=== PATIENT | female | born 1965 | race Hispanic/Latino ===

== ENCOUNTER 2023-02-27 08:53 | Day surgery (SDC) | payer BC ==
[2023-02-25 11:50] LABS: Absolute Lymphocytes (CBC) 2.2 K/uL (0.7-4.9); Hematocrit 39.7 % (36.0-45.0); Lymphocytes % 33.6 % (15.3-44.8); MCV 85.8 fL (80-100); MPV 7.8 fL (7.6-11.3); RBC Red Blood Cell Count 4.62 M/uL (3.86-4.86)
[2023-02-25 11:54] LABS: Potassium 3.5 mEq/L (3.5-5.1)
[2023-02-25 11:57] LABS: Protime INR 1.02
--- NOTE | 2023-02-25 12:05 | RAD REPORT ---
EXAM DESCRIPTION: RAD - Chest Pa And Lat (2 Views) - 02/25/2023 11:24 am CLINICAL HISTORY: Pre op pending trigger finger release. Hypertension COMPARISON: No comparisons TECHNIQUE: PA and lateral views of the chest were obtained. FINDINGS: The lungs are clear. Heart size is normal and central vasculature is within normal limits. No pleural effusion or pneumothorax seen. No acute bony finding noted. IMPRESSION: No acute cardiopulmonary process.
--- NOTE | 2023-02-25 13:37 | EKG ---
Test Date: 2023-02-25 Test Time: 11:13:11 Project Manager Retail: CARLIN MEASUREMENT RESULTS: Intervals: Rate: 74 WV: 138 QRSD: 84 QT: 388 QTc: 430 [place]: P: 7 WV: 138 QRS: -7 T: 14 INTERPRETIVE STATEMENTS: Normal sinus rhythm Normal ECG Compared to ECG 07/29/2018 08:24:08 Sinus arrhythmia no longer present Electronically Signed On 02-25-23 13:36:58 CDT by Eh Marroquin
[2023-02-27] MEDS ORDERED: CEFAZOLIN SODIUM 1 GM/VIAL ONE (09:19)
[2023-02-27] MEDS ORDERED: Ringers Lactate 1,000 ML IV ONE (09:19)
[2023-02-27] MEDS ORDERED: MIDAZOLAM HCL 2 MG/2 ML INJ ONE (10:20)
[2023-02-27] MEDS ORDERED: FENTANYL CITR 100 MCG/2 ML ONE (10:20)
[2023-02-27] MEDS ORDERED: propofoL 200 MG/20 ML VIAL IV ONE (10:20)
[2023-02-27] MEDS ORDERED: LIDOCAINE 2% MPF 5 ML VIAL ONE (10:20)
[2023-02-27] MEDS ORDERED: ONDANSETRON 4 MG/2 ML VIAL ONE ×2 (10:21→13:04)
[2023-02-27] MEDS ORDERED: BUPIVACAINE 0.25% PF 10 ML VIAL ONE (10:33)
[2023-02-27] MEDS ORDERED: dexAMETHasone 4 MG/ML VIAL ONE (11:05)
--- NOTE | 2023-02-27 11:35 | P.BOP ---
Preoperative diagnosis: left trigger thumb Postoperative diagnosis: same Primary procedure: left thumb A1 yael release Jig And Fixture Repairer: NONE,NONE Estimated blood loss: 2 cc Specimen: none Findings: see dictation Anesthesia: General Complications: None Implants: none Fluids & blood products: per anesthesia record; TT: 14 mins @ 250 mmHg Transferred to: Recovery Room Condition: Good
[2023-02-27] MEDS: HYDROMORPHONE HCL 1 MG/ML INJ ONE ×2 (12:04→12:09)
[2023-02-27] MEDS ORDERED: CODEINE 30MG/APAP 300MG TAB ONE (12:37)
[2023-02-27] MEDS ORDERED: PROMETHAZINE INJ 25 MG/ML AMP ONE (13:39)
[2023-02-27 15:29] VITALS: BP 125/76; TEMP 97.4; O2SAT 100
--- NOTE | 2023-03-04 14:37 | OP ---
Date of Procedure: 02/27/2023 Surgeon: Solitario Mckeon MD Preoperative Diagnosis: Left trigger thumb. Postoperative Diagnosis: Left trigger thumb. Procedure Performed: Left thumb A1 yael realease. Anesthesia: General LMA. Fluids: Per Anesthesia record. Estimated Blood Loss: 50 cc. Complications: None. Implants: None. Tourniquet Time: 14 minutes at 250 mmHg. Indication For Procedure: Jeannie is a 57-year-old female, who presented to the clinic with signs an d symptoms consistent with a trigger thumb. The patient failed conservative treatment measures inclu ding corticosteroid injection. The patient's symptoms interfered with her activities of daily living . I discussed with the patient at length risks and benefits associated with operative and nonoperati ve treatment. She expressed understanding and elected to proceed with operative treatment. Description Of Procedure: After informed consent was obtained, the patient was identified in the pre operative holding area. The left thumb was marked. The patient was then brought back to the operati ng room, transferred to the operating table in supine fashion, placed under general LMA anesthesia. The left upper extremity was then prepped and draped in the usual sterile fashion. A time-out was in itiated. Correct patient and procedure were confirmed and identified. The patient did receive her p reoperative prophylactic antibiotics. The left upper extremity was exsanguinated and the tourniquet was inflated to 250 mmHg. Approximately, a 1.5 cm incision was made in line with the crease at the b ase of the thumb. Dissection was then taken down to the flexor tendon sheath. The radial digital ne rve was gently retracted as it was overlying the flexor tendon sheath and protected throughout the ca se. A flexor tendon sheath was then incised using a 15 blade and released using a 15 blade as well a s tenotomies. Portion of the flexor tendon sheath was excised to minimize risk for recurrence. The tendon was then brought out through the incision and there was full excursion of the tendon without t riggering noted. The wound was then irrigated thoroughly with normal saline. Skin was approximated using a 5-0 Prolene. Sterile dressings were applied. Tourniquet was let down. The patient was awak ened and transferred to the PACU in stable condition. Postoperative Plan: The patient will be nonweightbearing of her left upper extremity. She may work on range of motion exercises. She will follow up in 2 weeks for wound check and suture removal. TRINA/SARMAD Voice ID: [id number] Report ID: [id number]
== END 2023-02-27 15:03 | disposition home or self-care (01) ==
LOC: OR 08:53
PROVIDERS: ATTEND Orthopaedic Surgery Sports Medicine
PROC: 0LN80ZZ Release Left Hand Tendon, Open Approach (ICD-10-PCS; principal; 2023-02-27 10:15)
DX: M65.312 Trigger thumb, left thumb (principal); E03.9 Hypothyroidism, unspecified; J30.2 Other seasonal allergic rhinitis; Z83.3 Family history of diabetes mellitus; Z82.49 Family history of ischemic heart disease and other diseases of the circulatory system
CPT/HCPCS: 93005; 85025; 80048; 36415; 85610; 85730; 71046; 26055; J2550; J2704; J1100; J2001; J2250; J3010; J1170; J2405 ×2; J7120; J0690

== ENCOUNTER 2023-03-20 09:32 | Day surgery (SDC) | payer BC ==
[2023-03-20] MEDS ORDERED: Ringers Lactate 1,000 ML IV ONE (09:56)
[2023-03-20] MEDS ORDERED: CEFAZOLIN SODIUM 2 GM/VIAL ONE (10:18)
[2023-03-20] MEDS ORDERED: MIDAZOLAM HCL 2 MG/2 ML INJ ONE (11:00)
[2023-03-20] MEDS ORDERED: KETOROLAC 30 MG/ML INJ ONE (11:00)
[2023-03-20] MEDS ORDERED: FENTANYL CITR 100 MCG/2 ML ONE (11:00)
[2023-03-20] MEDS ORDERED: propofoL 200 MG/20 ML VIAL IV ONE (11:00)
[2023-03-20] MEDS ORDERED: ONDANSETRON 4 MG/2 ML VIAL ONE (11:01)
[2023-03-20] MEDS ORDERED: LIDOCAINE 2% MPF 5 ML VIAL ONE (11:01)
[2023-03-20] MEDS ORDERED: SCOPOLAMINE HYDROBROMIDE PATCH TD ONE (11:02)
[2023-03-20] MEDS ORDERED: BUPIVACAINE 0.25% PF 10 ML VIAL ONE (11:05)
[2023-03-20] MEDS ORDERED: LIDOCAINE HCL/EPINEPHRINE 20 ML MDV ONE (11:07)
[2023-03-20] MEDS ORDERED: METHYLENE BLUE 0.5% 10 ML AMP ONE (11:07)
[2023-03-20] MEDS ORDERED: dexAMETHasone 10 MG/ML VIAL ONE (12:09)
--- NOTE | 2023-03-20 12:29 | P.OP ---
Preoperative diagnosis: LEFT Perirectal Cyst Postoperative diagnosis: LEFT Perirectal Cyst Primary procedure: Exam under anesthesia Secondary procedure: Excision of Perirectal Cyst Anesthesia: GETA + Local Estimated blood loss: <5cc Specimen: Cultures, Debridement Tissue Findings: Perirectal Cyst - no communication with rectum Complications: None Transferred to: Recovery Room Condition: Good
[2023-03-20 12:47] VITALS: O2SAT 100
[2023-03-20 14:31] VITALS: BP 117/63; TEMP 96.6
--- NOTE | 2023-03-20 20:10 | OP ---
Date of Procedure: 03/20/2023 Surgeon: Michel Rao MD, Preoperative Diagnosis: Left perirectal cyst. Postoperative Diagnosis: Left perirectal cyst. Procedures Performed: 1.Exam under anesthesia. 2.Excision of perirectal cyst. Anesthesia: General endotracheal plus local with 0.25% Marcaine. Estimated Blood Loss: Less than 5 cc. Specimen: Culture sent for both aerobic and anaerobic speciation and debridement tissue. Findings: Perirectal cyst approximately 2.5 cm in size with no communication to the rectum obvious. Complications: None. The patient was transferred to recovery room in good condition. Procedure In Detail: After informed consent was obtained, the patient was brought to the operating r oom and prepped and draped in the usual sterile fashion. After adequate anesthesia was achieved, the patient remained in lithotomy position. I injected left midline perirectal cyst, which was easily p alpable of approximately 2 to 2.5 cm in size down into the cystic structure, with methylene blue. At this point, I examined the rectal vault with the anoscope and found no evidence of perirectal involv ement. There was no methylene blue emanating from the perirectal vault as such. There was no indica tion that there was any fistulous tract connecting these structures. I then abandoned this portion o f the procedure. I then made a curvilinear incision around the cyst down to subcutaneous tissues and dissected circumferentially around the cystic structure. There was murky fluid around it, concernin g for infection. As such I cultured the area for both aerobic and anaerobic speciation. I removed a ll involved tissue at this point and sent it off for pathologic examination. I irrigated the area co piously. Hemostasis was achieved with electrocautery. I then closed the incision using interrupted 3-0 nylon sutures and a sterile dressing was placed over top. The patient tolerated the procedure wi thout evidence of any complication and transferred to PACU in good condition. All counts were correc t at the end of the case. TK/MODL Voice ID: [id number] Report ID: [id number]
== END 2023-03-20 14:00 | disposition home or self-care (01) ==
LOC: OR 09:32
PROVIDERS: ATTEND Surgery
PROC: 0JBB0ZZ Excision of Perineum Subcutaneous Tissue and Fascia, Open Approach (ICD-10-PCS; principal; 2023-03-20 15:15)
DX: L72.0 Epidermal cyst (principal); L02.215 Cutaneous abscess of perineum
CPT/HCPCS: 11423; 87070; 87205; 88304; 87075; J2704; J2001; J2250; J3010; J1100; J2405; J7120

== ENCOUNTER 2023-09-09 06:49 | Day surgery (SDC) | payer BC ==
[2023-09-09] MEDS ORDERED: Ringers Lactate 1,000 ML IV ONE (07:09)
[2023-09-09] MEDS ORDERED: propofoL 200 MG/20 ML VIAL IV ONE ×2 (08:27→09:18)
[2023-09-09] MEDS ORDERED: LIDOCAINE 1% MPF 5 ML VIAL ONE ×2 (08:27→08:35)
[2023-09-09 10:04] VITALS: O2SAT 100
[2023-09-09 10:16] VITALS: BP 113/77; TEMP 97.3
--- NOTE | 2023-09-15 14:15 | EKG ---
Test Date: 2023-09-07 Test Time: 11:50:32 Hand Chain Maker: ADA MEASUREMENT RESULTS: Intervals: Rate: 53 RI: 130 QRSD: 82 QT: 424 QTc: 397 [place]: P: 33 RI: 130 QRS: 13 T: 47 INTERPRETIVE STATEMENTS: Sinus bradycardia Otherwise normal ECG Compared to ECG 02/25/2023 11:13:11 Sinus rhythm no longer present Electronically Signed On 09-15-23 13:49:15 COMMUNITY SERVICES OFFICER by Eh Marroquin
== END 2023-09-09 10:29 | disposition home or self-care (01) ==
LOC: OR 06:49
PROVIDERS: ATTEND Internal Medicine Gastroenterology
PROC: 0DB78ZX Excision of Stomach, Pylorus, Via Natural or Artificial Opening Endoscopic, Diagnostic (ICD-10-PCS; 2023-09-09)
PROC: 0DBN8ZX Excision of Sigmoid Colon, Via Natural or Artificial Opening Endoscopic, Diagnostic (ICD-10-PCS; principal; 2023-09-09 08:00)
PROC: 0DB68ZX Excision of Stomach, Via Natural or Artificial Opening Endoscopic, Diagnostic (ICD-10-PCS; 2023-09-09 08:00)
DX: K92.1 Melena (principal); K59.09 Other constipation; R10.13 Epigastric pain; R14.0 Abdominal distension (gaseous); K21.9 Gastro-esophageal reflux disease without esophagitis; E03.9 Hypothyroidism, unspecified; K64.8 Other hemorrhoids; K21.00 Gastro-esophageal reflux disease with esophagitis, without bleeding; K44.9 Diaphragmatic hernia without obstruction or gangrene; K25.9 Gastric ulcer, unspecified as acute or chronic, without hemorrhage or perforation; K29.50 Unspecified chronic gastritis without bleeding; K63.5 Polyp of colon; Z86.010 Personal history of colon polyps; Z83.719 Family history of colon polyps, unspecified
CPT/HCPCS: 93005; 88312; 88305; 45380; 43239; J2704 ×2; J2001 ×2; J7120